=== PATIENT | male | born 1950 | race Caucasian/White ===

== ENCOUNTER 2022-06-10 15:35 | Emergency (ER) | payer OTHER ==
[~2022-06-10] VITALS: Ht 170.2 cm; Wt 81.6 kg
[2022-06-10] MEDS ORDERED: ATORVASTATIN CA40 MG (15:51)
[2022-06-10] MEDS ORDERED: GLUMETZA500 MG (15:51)
[2022-06-10] MEDS ORDERED: TAMS0.4C (15:52)
[2022-06-10] MEDS ORDERED: PROSCAR5 MG (15:52)
[2022-06-10] MEDS ORDERED: OMEPRAZOLE20 MG (15:52)
[2022-06-10] MEDS ORDERED: ZESTRIL20 MG (15:52)
== END 2022-06-10 20:49 | disposition home or self-care (01) ==
LOC: ER 15:35
DX: M54.50 Low back pain, unspecified (principal); E11.9 Type 2 diabetes mellitus without complications; Z79.84 Long term (current) use of oral hypoglycemic drugs; I10 Essential (primary) hypertension